=== PATIENT | male | born 1960 | race Caucasian/White ===

== ENCOUNTER 2024-06-23 00:04 | Inpatient (IN) | payer OTHER ==
[2024-06-23] MEDS: LIDOCAINE 1% INJ 10MG/ML (20 ML MDV) SQ ONE (00:02)
[2024-06-23] MEDS: VERAPAMIL SYRINGE (5 MG/10 ML) INTRACORON ONE (00:04)
--- NOTE | 2024-06-23 00:23 | ED ---
Chest Pain HPI - General Chief Complaint: Chest Pain Stated Complaint: Chest Pain Time Seen by Provider: 06/23/24 00:13 Source: patient Mode of arrival: ambulatory Limitations: no limitations - History of Present Illness Initial Comments: This patient is a 63-year-old man who presents to have evaluation for chest pain. The patient states that he had visited with his daughter this evening. She left around 9 PM and when he stood up he noticed the onset of pain in the left substernal area. The pain was heavy aching. He noticed that it was radiating to both of the shoulders. He took an aspirin at that time. The patient states that over the course of the intervening hours the pain worsened and he therefore comes here to have evaluation. He did take another aspirin. MD Complaint: chest pain Onset/Timin -: hour(s) Onset: during rest Pain Location: substernal Pain Radiation: RUE, LUE Severity: severe Quality: aching Consistency: constant Improves With: nothing Worsens With: nothing Anginal Symptoms: diaphoresis Treatments Prior to Arrival: aspirin - Related Data Home Medications Medication Instructions Recorded Confirmed Albuterol Sulfate [Albuterol 2 puff PO RT-Q6H PRN 06/23/24 06/23/24 Sulfate Hfa] Fluticasone Propion/Salmeterol 1 puff INHALATION RT-BID 06/23/24 06/23/24 [Advair 250-50 Diskus] Previous Rx's Medication Instructions Recorded Aspirin 81 mg PO DAILY #90 tab 06/25/24 Atorvastatin [Lipitor] 80 mg PO HS #90 tab 06/25/24 Clopidogrel [Plavix] 75 mg PO DAILY #90 tablet 06/25/24 Losartan [Cozaar] 25 mg PO DAILY #90 tab 06/25/24 Metoprolol Succinate (ER) [Toprol 12.5 mg PO DAILY #90 tab 06/25/24 XL] Allergies Allergy/AdvReac Type Severity Reaction Status Date / Time codeine AdvReac Nausea & Verified 06/23/24 09:20 Vomiting meperidine [From Demerol] AdvReac "heart Verified 06/23/24 09:20 stopped" Review of Systems ROS Statement: Those systems with pertinent positive or pertinent negative responses have been documented in the HPI. ROS Other: All systems not noted in ROS Statement are negative. Constitutional: Denies: fever, chills, weakness Respiratory: Denies: cough, dyspnea Cardiovascular: Reports: as per HPI, chest pain. Denies: palpitations, orthopnea, edema, syncope Gastrointestinal: Denies: abdominal pain, nausea, vomiting, diarrhea Genitourinary: Denies: dysuria, hematuria Musculoskeletal: Denies: back pain Skin: Denies: rash Neurological: Denies: headache, weakness, numbness EKG Findings - EKG Results: EKG: interpreted by ERMD, sinus rhythm (Rate 60 bpm), normal axis, normal QRS - UT, Pacemaker, Normal: Myocardial infarction: inferior UT (acute or recent) Past Medical History Past Medical History: COPD Additional Past Medical History / Comment(s): hernia History of Any Multi-Drug Resistant Organisms: None Reported Past Surgical History: No Surgical Hx Reported Past Psychological History: No Psychological Hx Reported Smoking Status: Former smoker Past Alcohol Use History: Occasional Past Drug Use History: None Reported General Exam Limitations: no limitations General appearance: alert, in no apparent distress Head exam: Present: atraumatic, normocephalic Eye exam: Present: normal appearance. Absent: scleral icterus, conjunctival injection ENT exam: Present: normal oropharynx Neck exam: Present: normal inspection, full ROM Respiratory exam: Present: normal lung sounds bilaterally. Absent: respiratory distress, wheezes, rales, rhonchi, stridor, accessory muscle use Cardiovascular Exam: Present: regular rate, normal rhythm, normal heart sounds. Absent: systolic murmur, diastolic murmur, rubs, gallop GI/Abdominal exam: Present: soft. Absent: distended, tenderness, guarding, rebound, rigid, mass, pulsatile mass Extremities exam: Present: normal inspection, normal capillary refill. Absent: pedal edema, calf tenderness Back exam: Present: normal inspection. Absent: CVA tenderness (R), CVA tenderness (L) Neurological exam: Present: alert Skin exam: Present: warm, dry, intact, normal color. Absent: rash Course Vital Signs 06/23/24 06/23/24 06/23/24 00:07 00:15 00:20 Temperature 97.7 F Pulse Rate 64 80 79 Pulse Rate [ 76 Right Radial] Respiratory 18 18 18 Rate Blood Pressure 180/95 176/106 181/113 O2 Sat by Pulse 98 99 99 Oximetry 06/23/24 06/23/24 06/23/24 00:25 00:30 00:40 Temperature Pulse Rate 77 74 75 Pulse Rate [ Right Radial] Respiratory 20 18 18 Rate Blood Pressure 144/130 182/171 149/97 O2 Sat by Pulse 98 98 95 Oximetry 06/23/24 00:45 Temperature Pulse Rate 68 Pulse Rate [ Right Radial] Respiratory 18 Rate Blood Pressure 136/81 O2 Sat by Pulse 95 Oximetry Chest Pain MDM - MDM The patient had chest x-ray that I interpreted as negative for acute infiltrate, pneumothorax, congestive heart failure The patient presents with symptoms that are concerning for STEMI. I did receive an EKG which is consistent with acute STEMI. I activated the code STEMI and discussed the case with Dr. Mock. Was pt. sent in by a medical professional or institution (, PA, SOLAR MAINTENANCE TECHNICIAN, urgent care, hospital, or fpc...) When possible be specific @ -[No] Did you speak to anyone other than the patient for history (EMS, parent, family, police, friend...)? What history was obtained from this source @ -[No] Did you review nursing and triage notes (agree or disagree)? Why? @ -[I reviewed and agree with nursing and triage notes] Were old charts reviewed (outside hosp., previous admission, EMS record, old EKG, old radiological studies, urgent care reports/EKG's, fpc records)? Report findings @ -[No old charts were reviewed] Differential Diagnosis (chest pain, altered mental status, abdominal pain women, abdominal pain men, vaginal bleeding, weakness, fever, dyspnea, syncope, headache, dizziness, GI bleed, back pain, seizure, CVA, palpatations, mental health, musculoskeletal)? @ -[Differential Chest Pain: Stable Angina, Unstable Angina, STEMI, NSTEMI Aortic Dissection, Pneumothorax, Musculoskeletal, Esophageal Spasm GERD, Cholecystitis, Pancreatitis, Zoster, this is not meant to be an all-inclusive list. EKG interpreted by me (3pts min.). @ -[I interpreted as above] X-rays interpreted by me (1pt min.). @ -[I interpreted as above CT interpreted by me (1pt min.). @ -[None done] U/S interpreted by me (1pt. min.). @ -[None done] What testing was considered but not performed or refused? (CT, X-rays, U/S, labs)? Why? @ -[None] What meds were considered but not given or refused? Why? @ -[None] Did you discuss the management of the patient with other professionals (professionals i.e. , PA, SOLAR MAINTENANCE TECHNICIAN, lab, RT, psych nurse, social studies teacher, real estate lawyer, teacher, digital marketing officer, case management specialist)? Give summary @ -[Case discussed with cardiology on-call and also with the admitting physician and treatment recommendations incorporated Was smoking cessation discussed for >3mins.? @ -[No] Was critical care preformed (if so, how long)? @ -[Yes, 35 minutes Were there social determinants of health that impacted care today? How? (Homeles sness, low income, unemployed, alcoholism, drug addiction, transportation, low edu. Level, literacy, decrease access to med. care, retirement, rehab)? @ -[No] Was there de-escalation of care discussed even if they declined (Discuss DNR or withdrawal of care, Hospice)? DNR status @ -[No] What co-morbidities impacted this encounter? (DM, HTN, Smoking, COPD, CAD, Cancer, CVA, ARF, Chemo, Hep., AIDS, mental health diagnosis, sleep apnea, morbid obesity)? @ -[Hypertension Was patient admitted / discharged? Hospital course, mention meds given and route, prescriptions, significant lab abnormalities, going to OR and other pertinent info. @ -[See course above, the patient had the Licensed Psychiatric Technician activated and sent to Licensed Psychiatric Technician as a STEMI Undiagnosed new problem with uncertain prognosis? @ -[No] Drug Therapy requiring intensive monitoring for toxicity (Heparin, Nitro, Insulin, Cardizem)? @ -[Heparin Were any procedures done? @ -[No] Diagnosis/symptom? @ -Acute STEMI Acute, or Chronic, or Acute on Chronic? @ -[Acute Uncomplicated (without systemic symptoms) or Complicated (systemic symptoms)? @ -[Uncomplicated Side effects of treatment? @ -[No] Exacerbation, Progression, or Severe Exacerbation? @ -[No] Poses a threat to life or bodily function? How? (Chest pain, [place], UT, pneumonia, PE, COPD, DKA, ARF, appy, cholecystitis, CVA, Diverticulitis, Homicidal, Suicidal, threat to staff... and all critical care pts) @ -[No] All treatments are based on ideal body weight as in ED triage Disposition Clinical Impression: STEMI (ST elevation myocardial infarction) Disposition: ADMITTED IP TO THIS HOSP Condition: Good Is patient prescribed a controlled substance at d/c from ED?: No
[2024-06-23] MEDS: MORPHINE SULFATE 4 MG/ML SYRINGE IV STA (00:24)
[2024-06-23] MEDS ORDERED: HEPARIN SODIUM 1,000 UN/ML (10ML VL) IV PRN (00:30)
[2024-06-23] MEDS: ONDANSETRON 4 MG/2 ML VIAL IVP STA (00:32)
[2024-06-23] MEDS: HEPARIN SODIUM 1,000 UN/ML (10ML VL) IV ONE ×2 (00:35→02:00)
[2024-06-23] MEDS: ATORVASTATIN 80 MG TAB PO STA (00:35)
[2024-06-23] MEDS: NITROGLYCERIN SL TABS 0.4 MG TAB SUBLINGUAL PRN (00:35)
[2024-06-23 00:38] LABS: Basophils # (A) 0.04 10*3/uL (0.00-0.10); Basophils % (A) 0.4 %; Eosinophils # (A) 0.03 10*3/uL (0.04-0.35); Eosinophils % (A) 0.3 %; HCT 43.1 % (39.6-50.0); HGB 15.6 g/dL (13.0-17.0); Lymphocytes # (A) 0.98 10*3/uL (0.90-5.00); Lymphocytes % (A) 9.1 %; MCH 32.2 pg (27.0-32.0); MCHC 36.2 g/dL (32.0-37.0); MCV 88.9 fL (80.0-97.0); Mean Platelet Volume 9.9 fL (9.5-12.2); Monocytes # (A) 0.41 10*3/uL (0.20-1.00); Monocytes % (A) 3.8 %; Neutrophils # (A) 9.25 10*3/uL (1.80-7.70); Platelet Count 182 10*3/uL (140-440); RBC 4.85 10*6/uL (4.40-5.60); RDW 11.9 % (11.5-14.5); WBC 10.75 10*3/uL (4.50-10.00)
[2024-06-23 00:43] LABS: Partial Thromboplastin Time 22.9 sec (22.0-30.0); Prothrombin Time 10.9 sec (10.0-12.5)
[2024-06-23 00:44] LABS: ALT 26 U/L (4-49); AST 23 U/L (17-59); African American GFR (CKD) >90 (>60 ml/min/1.73 sqM); Albumin 4.7 g/dL (3.5-5.0); Alkaline Phosphatase 86 U/L (38-126); Anion Gap 13 mmol/L; Blood Urea Nitrogen 17 mg/dL (9-20); Calcium 9.5 mg/dL (8.4-10.2); Carbon Dioxide 23 mmol/L (22-30); Chloride 102 mmol/L (98-107); Glucose 177 mg/dL (74-99); Non-African American GFR(CKD) 83 (>60 ml/min/1.73 sqM); Potassium 4.2 mmol/L (3.5-5.1); Sodium 138 mmol/L (137-145); Total Bilirubin 0.8 mg/dL (0.2-1.3); Total Protein 7.6 g/dL (6.3-8.2)
--- NOTE | 2024-06-23 00:59 | P.CRDCN ---
History of Present Illness Consult date: 06/23/24 History of present illness: HISTORY OF PRESENTING ILLNESS: Patient is a 63-year-old male with prior cardiovascular history History history of COPD and smoking Denies any history of stroke diabetes or any malignancies or any bleeding complications Presents to the [facility] [place] because of substernal chest pressure that started around 9 PM this evening. He describes this pain as substernal pressure-like sensation associated with diaphoresis and impending doom. Does report associated Demorem bleeding. Admission EKG showed sinus rhythm with ST elevations in inferior leads with reciprocal ST changes in 1 and aVF REVIEW OF SYSTEMS: 14 point review of system is negative except what is mentioned above in HPI. PHYSICAL EXAMINATION: Neck: Brisk carotid upstroke, no jugular venous distention. Lungs: Clear to auscultation. Heart: Regular rate and rhythm, S1-S2, , no murmur or rub. Abdomen: Soft nontender, positive bowel sounds. Extremities: No edema, intact distal pulses. Neuro: Alert, oritented, no focal deficits. Detailed neuro exam was not performed. ASSESSMENT: # Acute inferior STEMI # COPD # Prior tobacco smoker # Obesity PLAN: Plan for cardiac catheterization emergently Further recommendations to follow Mason Mock MD, FACC, RPVI Thank you for allowing [facility] to participate in this patient's care. Feel free to reach out in case of any followup questions. Past Medical History Past Medical History: COPD Additional Past Medical History / Comment(s): hernia History of Any Multi-Drug Resistant Organisms: None Reported Past Surgical History: No Surgical Hx Reported Past Psychological History: No Psychological Hx Reported Smoking Status: Former smoker Past Alcohol Use History: Occasional Past Drug Use History: None Reported Medications and Allergies Allergies Allergy/AdvReac Type Severity Reaction Status Date / Time codeine Allergy Nausea & Verified 06/23/24 00:09 Vomiting Physical Exam Vitals: Vital Signs Temp Pulse Resp BP Pulse Ox 06/23/24 00:45 68 18 136/81 95 06/23/24 00:40 75 18 149/97 95 06/23/24 00:30 74 18 182/171 98 06/23/24 00:25 77 20 144/130 98 06/23/24 00:20 79 18 181/113 99 06/23/24 00:15 80 18 176/106 99 06/23/24 00:07 97.7 F 64 18 180/95 98 Intake and Output 06/22/24 06/22/24 06/23/24 14:59 22:59 06:59 Other: Weight 113.398 kg Results 06/23/24 00:22 06/23/24 00:22 Cardiac Enzymes 06/23/24 Range/Units 00:22 AST 23 (17-59) U/L Coagulation 06/23/24 Range/Units 00:22 PT 10.9 (10.0-12.5) sec APTT 22.9 (22.0-30.0) sec CBC 06/23/24 Range/Units 00:22 WBC 10.75 H (4.50-10.00) 10*3/uL RBC 4.85 (4.40-5.60) 10*6/uL Hgb 15.6 (13.0-17.0) g/dL Hct 43.1 (39.6-50.0) % Plt Count 182 (140-440) 10*3/uL Comprehensive Metabolic Panel 06/23/24 Range/Units 00:22 Sodium 138 (137-145) mmol/L Potassium 4.2 (3.5-5.1) mmol/L Chloride 102 (98-107) mmol/L Carbon Dioxide 23 (22-30) mmol/L BUN 17 (9-20) mg/dL Creatinine 0.97 (0.66-1.25) mg/dL Glucose 177 H (74-99) mg/dL Calcium 9.5 (8.4-10.2) mg/dL AST 23 (17-59) U/L ALT 26 (4-49) U/L Alkaline Phosphatase 86 (38-126) U/L Total Protein 7.6 (6.3-8.2) g/dL Albumin 4.7 (3.5-5.0) g/dL Current Medications Generic Name Dose Route Start Last Admin Trade Name Freq PRN Reason Stop Dose Admin Heparin Sodium (Porcine) 0 unit 06/23/24 00:30 Heparin Sodium 1,000 Un/Ml (10ml Vl) IV PER PROTOCOL PRN Low PTT Protocol Heparin Sodium/Sodium Chloride 250 mls @ 9.99 mls/hr 06/23/24 00:30 25,000 unit/ Sodium Chloride IV .Q24H [facility] Protocol 8.81 UNITS/KG/HR Nitroglycerin 0.4 mg 06/23/24 00:31 06/23/24 00:43 Nitroglycerin Sl Tabs 0.4 Mg Tab SUBLINGUAL 0.4 mg Q5M PRN Administration Chest Pain Intake and Output 06/22/24 06/22/24 06/23/24 14:59 22:59 06:59 Other: Weight 113.398 kg Patient Weight 06/23/24 06:59 Weight 113.398 kg 06/23/24 00:22 06/23/24 00:22
[2024-06-23] MEDS: fentaNYL (PF) 50 MCG/ML 2 ML AMP IVP ONE (01:08)
[2024-06-23] MEDS: MIDAZOLAM 2 MG/2 ML VIAL IVP ONE (01:08)
[2024-06-23] MEDS: PRASUGREL 10 MG TAB PO ONE (01:20)
[2024-06-23] MEDS: HEPARIN SODIUM 1,000 UN/ML (10ML VL) IVP ONE (01:20)
[2024-06-23] MEDS: IOPAMIDOL-370 100ML BTL IVP ONE (01:25)
--- NOTE | 2024-06-23 01:27 | P.CRDCN ---
History of Present Illness Consult date: 06/23/24 History of present illness: DIAGNOSTIC CORONARY ANGIOGRAPHY and LEFT HEART CATH REPORT PROCEDURES PERFORMED: Left heart catheterization Selective coronary angiography Moderate conscious sedation 13 mins Right radial access INDICATION: Inferior STEMI BRIEF HPI: 63-year-old past medical history of smoking COPD no prior cardiovascular history presented to the hospital because of acute substernal chest pressure with diaphoresis and shortness of breath. Admission EKG showed inferior ST elevations with reciprocal changes in anterolateral leads. For this he was taken to the cardiac Pediatric Anesthesiologist emergently. CONSENT: I have explained the procedural steps of above-mentioned procedures in layman's terms to the patient. I discussed the risks (including but not limited to stroke, emergent vascular or cardiac surgery or ), benefits and alternative therapies for the above-mentioned procedure. I discussed the risks of sedation/analgesia and blood product administration (if indicated). The patient has indicated understanding and acceptance of these risks. Conscious Sedation: Patient's ECG, heart rate, blood pressure, pulse oximetry were monitored throughout the duration of procedure under my direct supervision. 1 mg Versed and 50 mcg Fentanyl were used for induction of moderate conscious sedation. Total duration of moderate concious sedation 13 minutes. PROCEDURAL DETAILS: Patient was prepped and draped in sterile fashion. 1% lidocaine was infiltrated over the right radial artery. Right radial access was obtained via modified seldinger technique. . Medications: 5mg of verapamil was administed in the radial sheet. 4000 Units of Heparin was administed in the ER Wires and Catheter used: J wire was advanced under fluroscopy to get to aortic root. 5 slovak JR 4 diagnostic catheter was utilized obtain left ventricular pressure and pressure gradint across aortic valve. 5 slovak JR 4 diagnostic catheter was used to selectively engage the right coronary ostium. 5 slovak JL 3.5 diagnostic catheter was utilized to selectively engage the left coronary ostium. Angiographic images were reviewed in detail. Catheter and wire were removed. Radial sheet was flushed. The right radial sheath was removed and a TR band was placed. Patent hemostasis was achieved. The patient tolerated the procedure well. Patient was transported back to the post catheterization holding area in stable condition. TECHNICAL DETAILS Total contrast used: Isovue [60 ml] Complications: [none] Estimated Blood loss: less than 15 ml HEMODYNAMICS: Aortic Pressure: 126/80 mmHg. LV pressure: 128/5 mmHg. LVEDP 20 mmHg. There was no significant gradient across the aortic valve. SELECTIVE CORONARY ARTERIOGRAPHY: LEFT MAIN: The left main is short and large caliber vessel. It bifurcates into the LAD and circumflex. Left main appears angiographically normal. LEFT ANTERIOR DESCENDING CORONARY ARTERY: LAD is large caliber and wraps around the apex. Distal portion of proximal LAD has 50% disease. Mid LAD has 60 to 70% narrowing. Mid LAD gives rise to a small diagonal 1 branch and a large caliber diagonal 2 branch. Diagonal 1 branch has 50 to 60% disease in mid segment. Small caliber not even before intervention. Diagonal 2 branch has 100% thrombotic occlusion TAMMY 0 flow. It is a culprit vessel. Distal LAD has mild luminal irregularities. LEFT CIRCUMFLEX CORONARY ARTERY: LCx is nondominant. Moderate caliber vessel. Proximal and mid LCx angiographically patent. Proximal and mid LCx gives rise to multiple small OM branches appear angiographically patent. Distal LCx has 50% disease. RIGHT CORONARY ARTERY: Dominant vessel moderate caliber. Proximal RCA appears angiographically patent with mild to moderate irregularities. Mid RCA has 30% irregular plaque. Distal RCA progressed into PDA and PL branch. PDA is medium caliber and long vessel. It has 20 to 30% luminal irregularities. IMPRESSION: 100% thrombotic occlusion of diagonal 2, TAMMY 0 flow 60 to 70% mid LAD disease 50% diagonal 1 disease, small caliber vessel 50% distal LCx disease 30% mid RCA disease Mild diffuse disease in PDA Mildly elevated LVEDP PLAN: PCI of diagonal 2 with IFR guided intervention of mid LAD Further recommendations to follow Performing Physician Mason Mock MD, FACC, RPVI Thank you for allowing [facility] to participate in this patient's care. Feel free to reach out in case of any followup questions. Past Medical History Past Medical History: COPD Additional Past Medical History / Comment(s): hernia History of Any Multi-Drug Resistant Organisms: None Reported Past Surgical History: No Surgical Hx Reported Past Psychological History: No Psychological Hx Reported Smoking Status: Former smoker Past Alcohol Use History: Occasional Past Drug Use History: None Reported Medications and Allergies Allergies Allergy/AdvReac Type Severity Reaction Status Date / Time codeine Allergy Nausea & Verified 06/23/24 00:09 Vomiting Physical Exam Vitals: Vital Signs Temp Pulse Resp BP Pulse Ox 06/23/24 00:45 68 18 136/81 95 06/23/24 00:40 75 18 149/97 95 06/23/24 00:30 74 18 182/171 98 06/23/24 00:25 77 20 144/130 98 06/23/24 00:20 79 18 181/113 99 06/23/24 00:15 80 18 176/106 99 06/23/24 00:07 97.7 F 64 18 180/95 98 Intake and Output 06/22/24 06/22/24 06/23/24 14:59 22:59 06:59 Other: Weight 113.398 kg Results 06/23/24 00:22 06/23/24 00:22 Cardiac Enzymes 06/23/24 06/23/24 Range/Units 00:22 00:22 AST 23 (17-59) U/L Troponin I 0.062 H* (0.000-0.034) ng/mL Coagulation 06/23/24 Range/Units 00:22 PT 10.9 (10.0-12.5) sec APTT 22.9 (22.0-30.0) sec CBC 06/23/24 Range/Units 00:22 WBC 10.75 H (4.50-10.00) 10*3/uL RBC 4.85 (4.40-5.60) 10*6/uL Hgb 15.6 (13.0-17.0) g/dL Hct 43.1 (39.6-50.0) % Plt Count 182 (140-440) 10*3/uL Comprehensive Metabolic Panel 06/23/24 Range/Units 00:22 Sodium 138 (137-145) mmol/L Potassium 4.2 (3.5-5.1) mmol/L Chloride 102 (98-107) mmol/L Carbon Dioxide 23 (22-30) mmol/L BUN 17 (9-20) mg/dL Creatinine 0.97 (0.66-1.25) mg/dL Glucose 177 H (74-99) mg/dL Calcium 9.5 (8.4-10.2) mg/dL AST 23 (17-59) U/L ALT 26 (4-49) U/L Alkaline Phosphatase 86 (38-126) U/L Total Protein 7.6 (6.3-8.2) g/dL Albumin 4.7 (3.5-5.0) g/dL Current Medications Generic Name Dose Route Start Last Admin Trade Name Freq PRN Reason Stop Dose Admin Heparin Sodium (Porcine) 0 unit 06/23/24 00:30 Heparin Sodium 1,000 Un/Ml (10ml Vl) IV PER PROTOCOL PRN Low PTT Protocol Heparin Sodium/Sodium Chloride 250 mls @ 9.99 mls/hr 06/23/24 00:30 25,000 unit/ Sodium Chloride IV .Q24H [facility] Protocol 8.81 UNITS/KG/HR Nitroglycerin 0.4 mg 06/23/24 00:31 06/23/24 00:43 Nitroglycerin Sl Tabs 0.4 Mg Tab SUBLINGUAL 0.4 mg Q5M PRN Administration Chest Pain Intake and Output 06/22/24 06/22/24 06/23/24 14:59 22:59 06:59 Other: Weight 113.398 kg Patient Weight 06/23/24 06:59 Weight 113.398 kg 06/23/24 00:22 06/23/24 00:22
[2024-06-23] MEDS: HYDROmorphone 0.5 MG/0.5 ML SYRINGE IVP ONE (01:37)
[2024-06-23] MEDS: NITROGLYCERIN 1000MCG/10ML SYRINGE INTRACORON ONE (01:38)
[2024-06-23] MEDS: SODIUM CHLORIDE 0.9% 1,000 ML IV ONE (01:38)
[2024-06-23] MEDS: IOPAMIDOL-370 100ML BTL INJ ONE (01:39)
--- NOTE | 2024-06-23 01:39 | XR ---
EXAM: XR Chest, 1 View CLINICAL HISTORY: XR Reason: Chest Pain TECHNIQUE: Frontal view of the chest. COMPARISON: No relevant prior studies available. FINDINGS: Lungs: Slightly prominent vascular and interstitial markings throughout the lungs without overt edema or acute focal infiltrate. Pleural space: Unremarkable. No pneumothorax. Heart: The cardiac silhouette is upper normal in size. Mediastinum: Unremarkable. Normal mediastinal contour. Bones/joints: Unremarkable. No acute fracture. Upper abdomen: Unremarkable as visualized. No pneumoperitoneum under the diaphragm. IMPRESSION: Slightly prominent vascular and interstitial markings throughout the lungs without overt edema or acute focal infiltrate.
[2024-06-23] MEDS: niCARdipine Syringe (1,000 mcg/10 mL) INTRACORON ONE (01:44)
[2024-06-23] MEDS: TIROFIBAN 12.5MG-250ML NS 250 ML IV ONE (01:50)
[2024-06-23] MEDS ORDERED: ATROPINE SULFATE 0.1 MG/ML 10ML SYRINGE IV PRN (01:56)
[2024-06-23] MEDS ORDERED: NITROGLYCERIN SL TABS 0.4 MG TAB SUBLINGUAL PRN (01:56)
[2024-06-23] MEDS ORDERED: RX INFO: IV CONTRAST WAS GIVEN 1 EACH MISC MISCELLANE PRN (01:56)
[2024-06-23] MEDS ORDERED: MAG HYDROX/AL HYDROX/SIMETH 30 ML CUP PO PRN (01:56)
--- NOTE | 2024-06-23 02:01 | P.PCN ---
Date of Procedure: 06/23/24 Operative Findings: PERCUTANEOUS CORONARY INTERVENTION Performing physician Eleno Gann M.D. Procedure Performed: 1. Successful stenting of the second diagonal branch of the using 4.0 x 15 mm Xience drug-eluting stent with an excellent angiographic results. 2. Adjunctive use of IVUS Indication: Acute coronary send Approach: Right radial art Complications: None Level of Sedation: Moderate with a sedation length of 33 minutes Procedure Discussion: Please refer to heart catheterization was performed by Dr. Mock earlier today with anticoagulation was initiated using heparin with continuous ACT monitoring. Subsequently I did engage the left main coronary artery using JL 3.5 guiding catheter. I did load the patient with Effient immediately from the beginning of the procedure before we engaged with the guide. I did wire the LAD using a run- through wire and wired the diagonal branch using another run-through wire as well. Subsequently I did balloon angioplasty of the diagonal branch using 2.5 mm balloon before I did IVUS which showed a diameter between 3.5 to 4 mm. 4.0 x 15 mm stent was deployed under fluoroscopy guidance and IVUS was performed and the stent was postdilated using 4.5 mm NC balloon. There was distal clot involving the distal diagonal branch which I gave the patient some Aggrastat to be initiated for the large thrombus burden identified. The procedure was completed with no complication Postprocedure Management: 1. Dual antiplatelet therapy using aspirin and Effient 2. Cholesterol count 3. Risk factors modification
[2024-06-23 02:09] LABS: Glucose,Whole Blood 149 mg/dL (70-110)
[2024-06-23 02:10] LABS: NT-Pro-B-Type Natriuretic Pept 58 pg/mL
[2024-06-23] MEDS: SODIUM CHLORIDE 0.9% 1,000 ML in EMPTY BAG 1 BAG IV SCH (02:18)
[2024-06-23] MEDS: HEPARIN SOD,PORK IN 0.45% NACL 25,000 UNIT in 0.45% NACL 1 250ML.BAG IV SCH (03:43)
[2024-06-23] MEDS ORDERED: IPRATROPIUM-ALBUTEROL 3 ML NEB INHALATION PRN (04:52)
--- NOTE | 2024-06-23 04:52 | P.HPIM ---
History of Present Illness H&P Date: 06/23/24 63-year-old male with COPD and smoking, history of DM and hyperlipidemia corrected with diet and weight loss years ago Patient coming in for evaluation of chest pain that started suddenly last night when he started feeling pain substernal and left side of his chest felt like heavy achy pain which was radiating to both shoulders and was getting worse despite taking aspirin, pain was associated with profuse sweating and dyspnea. Denies any cardiac history in the past, however he did have an episode of chest pain and syncope 2 weeks ago , but felt fine after he woke up and did not think much about it. he has been going through a divorce for the past 2 years, and was very stressful, stopped exercising and gained all the weight back. EKG in the ED showed ST segment elevation in the inferior leads Fringing Machine Operator was activated for STEMI, patient was taken emergently to the Fringing Machine Operator with the following findings 100% thrombotic occlusion of diagonal 2, TAMMY 0 flow 60 to 70% mid LAD disease 50% diagonal 1 disease, small caliber vessel 50% distal LCx disease 30% mid RCA disease Mild diffuse disease in PDA Mildly elevated LVEDP Successful stenting of the second diagonal branch of the using 4.0 x 15 mm Xience drug-eluting stent with an excellent angiographic results. review of systems Pertinent positives as noted in HPI. All other systems were reviewed and are negative on exam Constitutional: No acute distress, conversant, pleasant Eyes: Anicteric sclerae, moist conjunctiva, Pupils equal round reactive to light ENMT: NC/AT Oropharynx clear, no erythema, or exudates Neck: Supple, no masses, or JVD No carotid bruits No thyromegaly Lungs: Clear to auscultation Clear to percussion Normal respiratory effort, no accessory muscle use Cardiovascular: Heart regular in rate and rhythm, No murmurs, gallops, or rubs No peripheral edema Abdominal: Soft Nontender, no guarding, rebound or rigidity Abdomen moving with respiration Normoactive bowel sounds Extremities: No digital cyanosis No clubbing Pedal pulses intact and symmetrical Radial pulses intact and symmetrical No calf tenderness Psychiatric: Alert and oriented to person, place and time Appropriate affect fair judgement Neuro Muscles Strength 5/5 in all 4 extremities Sensation to light touch grossly present throughout Cranial nerves II-XII grossly intact Past Medical History Past Medical History: COPD Additional Past Medical History / Comment(s): hernia History of Any Multi-Drug Resistant Organisms: None Reported Past Surgical History: No Surgical Hx Reported Past Anesthesia/Blood Transfusion Reactions: No Reported Reaction Past Psychological History: No Psychological Hx Reported Smoking Status: Former smoker Past Alcohol Use History: Occasional Past Drug Use History: None Reported Medications and Allergies Allergies Allergy/AdvReac Type Severity Reaction Status Date / Time codeine Allergy Nausea & Verified 06/23/24 00:09 Vomiting Physical Exam Vitals: Vital Signs Temp Pulse Pulse Resp BP BP Pulse Ox 06/23/24 03:30 86 9 L 147/87 94 L 06/23/24 03:00 76 14 142/91 97 06/23/24 02:52 98.3 F 76 6 L 142/91 96 06/23/24 02:30 76 18 139/80 99 06/23/24 02:15 79 11 L 139/80 94 L 06/23/24 00:45 68 18 136/81 95 06/23/24 00:40 75 18 149/97 95 06/23/24 00:30 74 18 182/171 98 06/23/24 00:25 77 20 144/130 98 06/23/24 00:20 79 18 181/113 99 06/23/24 00:15 80 76 18 176/106 99 06/23/24 00:07 97.7 F 64 18 180/95 98 Intake and Output 06/22/24 06/22/24 06/23/24 14:59 22:59 06:59 Intake Total 394 Balance 394 Intake: IV 394 Sodium Chloride 0.9% 1, 150 000 ml In Empty Bag 1 bag @ 75 mls/hr IV .[id number] [facility] Rx#:[id number] Other: Weight 113.398 kg Results CBC & Chem 7: 06/23/24 00:22 06/23/24 00:22 Labs: Abnormal Lab Results - Last 24 Hours (Table) 06/23/24 06/23/24 06/23/24 Range/Units 00:22 00:22 00:22 WBC 10.75 H (4.50-10.00) 10*3/uL MCH 32.2 H (27.0-32.0) pg Neutrophils # 9.25 H (1.80-7.70) 10*3/uL Eosinophils # 0.03 L (0.04-0.35) 10*3/uL Glucose 177 H (74-99) mg/dL POC Glucose (mg/dL) (70-110) mg/dL Troponin I 0.062 H* (0.000-0.034) ng/mL 06/23/24 Range/Units 02:08 WBC (4.50-10.00) 10*3/uL MCH (27.0-32.0) pg Neutrophils # (1.80-7.70) 10*3/uL Eosinophils # (0.04-0.35) 10*3/uL Glucose (74-99) mg/dL POC Glucose (mg/dL) 149 H (70-110) mg/dL Troponin I (0.000-0.034) ng/mL Thrombosis Risk Factor Assmnt - Choose All That Apply Each Factor Represents 1 point: Obesity (BMI >25) Each Risk Factor Represents 2 Points: Age 61-74 years Thrombosis Risk Factor Assessment Total Risk Factor Score: 3 Thrombosis Risk Factor Assessment Level: Moderate Risk Assessment and Plan Assessment: 63-year-old male with COPD, smoking coming in for chest pain found to have STEMI I discussed the case with ED doctor and accepted the admission for STEMI with anticipated length of stay more than 2 midnights STEMI Patient was emergently taken to the Fringing Machine Operator Troponin elevated 0.062 Successful stenting of the second diagonal branch of the using 4.0 x 15 mm Xience drug-eluting stent with an excellent angiographic results. Continue with aspirin Continue with Brilinta Atorvastatin 80 mg nightly Cardiology following ICU care Check lipid profile, A1c TSH unremarkable 2.56 COPD compensated Supplemental oxygen as needed DuoNebs as needed Full code DVT prophylaxis heparin SQ 3 times daily 5000 units Blood work showing white count 10.75 most likely reactive to above Hemoglobin unremarkable 15.6 Renal function unremarkable sodium 138 potassium 4.2 BUN 17 creatinine 0.97 Chest x-ray showing some slight prominent vascular interstitial markings throughout the lungs
[2024-06-23] MEDS: HYDROmorphone 1 MG/ML 1 ML SYRINGE IVP STA (06:27)
--- NOTE | 2024-06-23 08:06 | P.PN ---
Subjective Progress Note Date: 06/23/24 The patient is a 63-year-old gentleman with a past medical history significant for hypertension and dyslipidemia and overweight who was admitted to the hospital yesterday with a chest discomfort and was a diagnosed with ST elevation myocardial infarction. He underwent a heart catheterization was found to have intermediate disease involving the RCA and mid LAD by the bifurcation of a large diagonal branch which was occluded with a large thrombus burden. He underwent PCI of the diagonal branch. June 23, 2024 The patient was seen and evaluated this morning. He is asymptomatic and he is hemodynamically stable. The echo still pending. He is on dual antiplatelet therapy along with high intensity statin. The physical examination is remarkable for regular rhythm with a soft systolic murmur and clear breathing sounds bilaterally and no edema was noted in the lower extremities Assessment ST elevation myocardial infarction Severe CAD as described above Multiple comorbid conditions Plan Continue the current medical regimen Add small dose of beta-oziel Follow-up on the echocardiogram Further recommendation to follow the echocardiogram The patient can be transferred out of the ICU Objective - Vital Signs Vital signs: Vital Signs Temp 98.3 F 06/23/24 02:52 Pulse 89 06/23/24 07:00 Resp 12 06/23/24 07:00 BP 122/67 06/23/24 07:00 Pulse Ox 94 L 06/23/24 07:00 FiO2 Intake & Output 06/22/24 06/23/24 06/23/24 18:59 06:59 18:59 Intake Total 619 75 Output Total 200 Balance 419 75 Weight 113.398 kg Intake: IV 619 75 Sodium Chloride 0.9% 1, 375 75 000 ml In Empty Bag 1 bag @ 75 mls/hr IV .[id number] [facility] Rx#:[id number] Output: Urine 200 Other: Voiding Method Urinal - Labs CBC & Chem 7: 06/23/24 00:22 06/23/24 00:22 Labs: Abnormal Lab Results - Last 24 Hours (Table) 06/23/24 06/23/24 06/23/24 Range/Units 00:22 00:22 00:22 WBC 10.75 H (4.50-10.00) 10*3/uL MCH 32.2 H (27.0-32.0) pg Neutrophils # 9.25 H (1.80-7.70) 10*3/uL Eosinophils # 0.03 L (0.04-0.35) 10*3/uL Glucose 177 H (74-99) mg/dL POC Glucose (mg/dL) (70-110) mg/dL Troponin I 0.062 H* (0.000-0.034) ng/mL 06/23/24 Range/Units 02:08 WBC (4.50-10.00) 10*3/uL MCH (27.0-32.0) pg Neutrophils # (1.80-7.70) 10*3/uL Eosinophils # (0.04-0.35) 10*3/uL Glucose (74-99) mg/dL POC Glucose (mg/dL) 149 H (70-110) mg/dL Troponin I (0.000-0.034) ng/mL
[2024-06-23 08:15] LABS: Chol/HDL Ratio 8.88 Ratio
[2024-06-23] MEDS: HEPARIN SODIUM,PORCINE 5,000 UNIT/ML 1 ML VIAL SQ SCH (08:52)
[2024-06-23] MEDS: TICAGRELOR 90 MG TAB PO SCH (08:53)
[2024-06-23] MEDS: ASPIRIN 81 MG PO SCH (08:53)
[2024-06-23] MEDS: METOPROLOL SUCCINATE (ER) 25 MG TAB.ER.24H PO SCH (08:53)
--- NOTE | 2024-06-23 10:19 | CA ---
Transthoracic Echo Report Name: Chicho Anguiano Age: 63 Gender: M : 1960 Exam Date: 06/23/2024 07:47 Exam Location: [facility] Ht (in): 68 Wt (lb): 250 Ordering Physician: Eleno Gann MD ([id number]) Attending/Referring Phys: Automotive Specialty Technician Jennifer Yuan RDCS Procedure CPT: Indications: Post ASD/PFO Insertion Cardiac Hx: no pfo closure--pt had PCI Technical Quality: Technically difficult study Contrast 1: Definity Total Dose (mL): 2 Contrast 2: Total Dose (mL): MEASUREMENTS (Male / Female) Normal Values 2D ECHO LV Diastolic Diameter PLAX 4.0 cm 4.2 - 5.9 / 3.9 - 5.3 cm LV Systolic Diameter PLAX 2.9 cm IVS Diastolic Thickness 1.1 cm 0.6 - 1.0 / 0.6 - 0.9 cm LVPW Diastolic Thickness 1.1 cm 0.6 - 1.0 / 0.6 - 0.9 cm LV Relative Wall Thickness 0.6 RV Internal Dim ED PLAX 4.0 cm LA Systolic Diameter LX 4.0 cm 3.0 - 4.0 / 2.7 - 3.8 cm LV Diastolic Volume MOD BP 59.6 cm??? 67 - 155 / 56 - 104 cm??? LV Systolic Volume MOD BP 25.7 cm??? 22 - 58 / 19 - 49 cm??? LV Ejection Fraction MOD BP 56.9 % >= 55 % LV Cardiac Index MOD BP 1096.6 cm???/min???m??? LV Diastolic Volume MOD 4C 61.6 cm??? LV Systolic Volume MOD 4C 25.0 cm??? LV Ejection Fraction MOD 4C 59.4 % LV Cardiac Index MOD 4C 1183.2 cm???/min???m??? LV Diastolic Length 4C 6.9 cm LV Systolic Length 4C 6.3 cm LV Diastolic Volume MOD 2C 57.8 cm??? LV Systolic Volume MOD 2C 27.3 cm??? LV Ejection Fraction MOD 2C 52.8 % LV Cardiac Index MOD 2C 985.6 cm???/min???m??? LV Diastolic Length 2C 6.8 cm LV Systolic Length 2C 6.5 cm LA Volume 43.6 cm??? 18 - 58 / 22 - 52 cm??? LA Volume Index 18.3 cm???/m??? 16 - 28 cm???/m??? M-MODE Aortic Root Diameter MM 3.3 cm AV Cusp Separation MM 2.2 cm DOPPLER AV Peak Velocity 137.9 cm/s AV Peak Gradient 7.6 mmHg MV Area PHT 5.1 cm??? Mitral E Point Velocity 75.1 cm/s Mitral A Point Velocity 79.7 cm/s Mitral E to A Ratio 0.9 MV Deceleration Time 147.8 ms TR Peak Velocity 239.7 cm/s TR Peak Gradient 23.0 mmHg Right Ventricular Systolic Press 28.0 mmHg FINDINGS Left Ventricle Left ventricular ejection fraction is estimated at 45-50%. Left ventricular cavity size normal. Mildly increased septal wall thickness. Apical lateral hypokinesis, Apical anterior hypokinesis. Right Ventricle Moderate right ventricular dilatation. Right ventricular systolic pressure within normal limits. Right Atrium Right atrium not well visualized. Left Atrium Normal left atrial size. No left atrial thrombus or mass present. Mitral Valve Structurally normal mitral valve. No mitral stenosis, regurgitation or prolapse. Aortic Valve Trileaflet aortic valve. Thickened aortic valve without stenosis. No aortic valve stenosis or regurgitation. Tricuspid Valve Structurally normal tricuspid valve. Mild tricuspid regurgitation. Pulmonic Valve Pulmonic valve not well visualized. No pulmonic regurgitation. Pericardium No pericardial effusion. Aorta Normal size aortic root and proximal ascending aorta. CONCLUSIONS Normal left ventricle size with hypokinesia involving the apical lateral and distal anteroapical wall with ejection fraction in the 45 to 50% range. Aortic valve sclerosis. Mild mitral and tricuspid regurgitation. Technically difficult study with no clear-cut pericardial effusion and no pulmonary hypertension. Right ventricle is enlarged. Previewed by: Dr. Nazario Snow MD (Electronically Signed) Final Date: 23 Jun 2024 10:18
[2024-06-23 13:15] VITALS: BMI 38.0
[2024-06-23] MEDS: ATORVASTATIN 80 MG TAB PO SCH (19:57)
[2024-06-23] MEDS: SYMBICORT 80-4.5 MCG INHALER INHALATION SCH (20:23)
[2024-06-24 04:46] LABS: Basophils # (A) 0.06 10*3/uL (0.00-0.10); Basophils % (A) 0.8 %; Eosinophils # (A) 0.14 10*3/uL (0.04-0.35); HCT 42.6 % (39.6-50.0); HGB 15.2 g/dL (13.0-17.0); Lymphocytes # (A) 1.62 10*3/uL (0.90-5.00); Lymphocytes % (A) 22.8 %; MCHC 35.7 g/dL (32.0-37.0); MCV 89.7 fL (80.0-97.0); Mean Platelet Volume 9.9 fL (9.5-12.2); Monocytes % (A) 8.4 %; Neutrophils # (A) 4.68 10*3/uL (1.80-7.70); Neutrophils % (A) 65.9 %; Platelet Count 179 10*3/uL (140-440); RBC 4.75 10*6/uL (4.40-5.60); RDW 11.9 % (11.5-14.5); WBC 7.11 10*3/uL (4.50-10.00)
[2024-06-24 05:01] LABS: INR 1.1 (<1.2); Prothrombin Time 11.9 sec (10.0-12.5)
--- NOTE | 2024-06-24 07:30 | P.PN ---
Subjective Progress Note Date: 06/24/24 The patient is a 63-year-old gentleman with a past medical history significant for hypertension and dyslipidemia and overweight who was admitted to the hospital yesterday with a chest discomfort and was a diagnosed with ST elevation myocardial infarction. He underwent a heart catheterization was found to have intermediate disease involving the RCA and mid LAD by the bifurcation of a large diagonal branch which was occluded with a large thrombus burden. He underwent PCI of the diagonal branch. June 23, 2024 The patient was seen and evaluated this morning. He is asymptomatic and he is hemodynamically stable. The echo still pending. He is on dual antiplatelet therapy along with high intensity statin. The physical examination is remarkable for regular rhythm with a soft systolic murmur and clear breathing sounds bilaterally and no edema was noted in the lower extremities June 24, 2024 The patient was seen and evaluated this morning. He continues to have mild chest discomfort but no shortness of breath or any other cardiovascular symptoms. The echo showed cardiomyopathy with EF between 45 to 50% with wall motion abnormalities in the LAD/diagonal distribution. The plan is to pursue an FFR of the RCA and LAD later on today. Otherwise he is on dual antiplatelet therapy along with high intensity statin and beta-oziel. I am going to add losartan to the current medical regimen. The physical examination is remarkable for regular rhythm with a soft systolic murmur and clear breathing sounds bilaterally and no edema was noted in the lower extremities Assessment ST elevation myocardial infarction Severe CAD as described above Multiple comorbid conditions Plan Continue the current medical regimen Add losartan to the current medical regimen Proceed with FFR Objective - Vital Signs Vital signs: Vital Signs Temp 98.4 F 06/24/24 04:00 Pulse 65 06/24/24 05:00 Resp 8 L 06/24/24 05:00 BP 139/91 06/24/24 05:00 Pulse Ox 98 06/24/24 04:00 FiO2 Intake & Output 06/23/24 06/24/24 06/24/24 18:59 06:59 18:59 Intake Total 315 Output Total 380 500 Balance -65 -500 Weight 113.398 kg 104 kg Intake: IV 75 Sodium Chloride 0.9% 1, 75 000 ml In Empty Bag 1 bag @ 75 mls/hr IV .[id number] [facility] Rx#:[id number] Oral 240 Output: Urine 380 500 Other: Voiding Method Urinal Urinal # Voids 1 2 # Bowel Movements 1 - Labs CBC & Chem 7: 06/24/24 04:23 06/23/24 00:22 Labs: Abnormal Lab Results - Last 24 Hours (Table) 06/23/24 Range/Units 00:22 Triglycerides 866.00 H (0.00-149.00) mg/dL VLDL Cholesterol, Calc 173.20 H (5.00-40.00) mg/dL HDL Cholesterol 22.40 L (40.00-60.00) mg/dL
[2024-06-24 08:08] LABS: African American GFR (CKD) >90 (>60 ml/min/1.73 sqM); Anion Gap 8 mmol/L; Blood Urea Nitrogen 13 mg/dL (9-20); Calcium 9.2 mg/dL (8.4-10.2); Carbon Dioxide 21 mmol/L (22-30); Chloride 107 mmol/L (98-107); Glucose 119 mg/dL (74-99); Non-African American GFR(CKD) >90 (>60 ml/min/1.73 sqM); Potassium 3.8 mmol/L (3.5-5.1); Sodium 136 mmol/L (137-145)
[2024-06-24] MEDS: LOSARTAN 25 MG TAB PO SCH (11:29)
--- NOTE | 2024-06-24 11:59 | P.PN ---
Subjective Progress Note Date: 06/24/24 Subjective: Seen and examined at bedside. No acute events overnight. Denies any chest pain. Pertinent positives and negatives as discussed above, a complete review of systems was performed and all other systems are negative. Vitals Signs Reviewed. General: Nontoxic, no distress, appears at stated age Derm: Warm, dry Head: Atraumatic, normocephalic, symmetric Eyes: EOMI, no lid lag, anicteric sclera Mouth: No lip lesion, mucus membranes moist Cardiovascular: S1S2 reg, no murmur Lungs: CTA bilateral, no rhonchi, no rales, no accessory muscle use Abdominal: Soft, nontender to palpation, no guarding, no appreciable organomegaly Ext: No gross muscle atrophy, trace peripheral edema, no contractures Neuro: CN II-XI grossly intact, no focal neuro deficits Psych: Alert, oriented, appropriate affect Data Reviewed Today: Pertinent Labs: WBC 7.11, hemoglobin 15.2, platelet 179, sodium 136, bicarb 21, creatinine 0.88, magnesium 2 Imaging: Echocardiogram report reviewed, shows LVEF 45 to 50%, apical lateral hypokinesis, apical anterior hypokinesis, moderate right ventricular dilation Assessment and Plan: Active: Acute STEMI status post PCI of diagonal branch Multivessel coronary artery disease Hypertension Former smoker Dyslipidemia Hypertriglyceridemia - Cardiology note reviewed, planning for FFR of the RCA and LAD - Mildly reduced LVEF, no clinical signs of decompensated heart failure - Continue on aspirin 81 mg, atorvastatin 80, Brilinta 90 twice daily - Also on losartan 25 daily, metoprolol 12.5 daily - Consider icosapent ethyl at the time of discharge for hypertriglyceridemia, currently not available on formulary History of COPD - Not in exacerbation - Continue home Symbicort twice daily Resolved: Leukocytosis DVT ppx: Subcu heparin Code status: Full code Anticipated discharge place: Pending clinical course Anticipated discharge time: Pending clinical course Objective - Vital Signs Vital signs: Vital Signs Temp 98.4 F 06/24/24 04:00 Pulse 68 06/24/24 11:00 Resp 15 06/24/24 11:00 BP 118/82 06/24/24 11:00 Pulse Ox 98 06/24/24 04:00 FiO2 Intake & Output 06/23/24 06/24/24 06/24/24 18:59 06:59 18:59 Intake Total 315 Output Total 380 500 275 Balance -65 -500 -275 Weight 113.398 kg 104 kg Intake: IV 75 Sodium Chloride 0.9% 1, 75 000 ml In Empty Bag 1 bag @ 75 mls/hr IV .[id number] [facility] Rx#:[id number] Oral 240 Output: Urine 380 500 275 Other: Voiding Method Urinal Urinal Urinal # Voids 1 2 # Bowel Movements 1 - Labs CBC & Chem 7: 06/24/24 04:23 06/24/24 04:23 Labs: Abnormal Lab Results - Last 24 Hours (Table) 06/24/24 Range/Units 04:23 Sodium 136 L (137-145) mmol/L Carbon Dioxide 21 L (22-30) mmol/L Glucose 119 H (74-99) mg/dL
[2024-06-24] MEDS: MIDAZOLAM 2 MG/2 ML VIAL IVP ONE (17:30)
[2024-06-24] MEDS: LIDOCAINE 1% INJ 10MG/ML (20 ML MDV) SQ ONE (17:30)
[2024-06-24] MEDS: HEPARIN SODIUM 1,000 UN/ML (10ML VL) IVP ONE (17:34)
[2024-06-24] MEDS: VERAPAMIL SYRINGE (5 MG/10 ML) INTRAARTER ONE (17:34)
[2024-06-24] MEDS: SODIUM CHLORIDE 0.9% 500 ML 500 ML IV ONE (17:35)
[2024-06-24] MEDS: fentaNYL (PF) 50 MCG/ML 2 ML AMP IVP ONE (17:35)
[2024-06-24] MEDS: IOPAMIDOL-370 100ML BTL INJ ONE (17:43)
[2024-06-24] MEDS ORDERED: RX INFO: IV CONTRAST WAS GIVEN 1 EACH MISC MISCELLANE PRN (17:47)
--- NOTE | 2024-06-24 17:52 | P.PCN ---
Date of Procedure: 06/24/24 Operative Findings: IFR of the RCA and LAD Performing physician Eleno Gann MD Procedure performed IFR of the RCA and LAD Bilateral coronary angiogram Indication This is a 63-year-old gentleman who was admitted to the hospital recently with a STEMI and was found to have occluded diagonal branch. He underwent PCI of the diagonal branch. He continues to have a chest discomfort and he was found to have also intermediate disease involving the LAD and RCA. Approach Right radial artery Complication None Level of sedation Moderate with sedation length of 15 minutes Procedure description After obtaining informed consent the patient was brought to the cardiac Engine Emission Technician. The right radial artery was cannulated using micropuncture technique the micropuncture wire passed easily then I placed a 6 Burmese 11 cm sheath at the right radial artery and subsequently the patient was given 2 mg of verapamil intra-arterial and 5000's of heparin intravenous. After zeroing the Dobler wire and equalized in between the Dobler wire and guiding catheter which was JR4 guiding catheter the RCA was engaged and subsequently wired. The IFR of the RCA came to be at 0.96. Subsequently I did normalization between the Dobler wire and guiding catheter which was JL 3.5 guiding catheter and then left main was engaged and the LAD was wired with IFR came to be at 0.91. The procedure was completed with no complication Conclusion Intermediate disease involving the RCA documented to be nonflow-limiting by Doppler wire Intermediate disease involving the LAD documented to be nonflow-limiting by Doppler wire Patent stent in the diagonal branch Postprocedure management Aggressive cholesterol control risk factors modification Follow-up
[2024-06-24] MEDS: SODIUM CHLORIDE 0.9% 1,000 ML IV SCH (18:48)
[2024-06-24] MEDS: ZOLPIDEM 5 MG TAB PO PRN (20:08)
[2024-06-25 05:12] VITALS: TEMP 99
[2024-06-25 11:19] VITALS: BP 103/66; PULSE 67; RESP 16
--- NOTE | 2024-06-25 11:29 | P.DS ---
Providers Date of admission: 06/23/24 00:40 Expected date of discharge: 06/25/24 Attending physician: Candelario Sanchez MD Consults: 06/23/24 00:39 Consult Physician Stat Consulting Provider: Mason Mock Consult Reason/Comments: Acute STEMI Do you want consulting provider notified?: Yes 06/23/24 01:56 Consult Physician Routine Consulting Provider: [facility] Consult Reason/Comments: Post Interventional Patient Do you want consulting provider notified?: Already Contacted Primary care physician: Stated None Hospital Course: Hospital course 63-year-old male with COPD and smoking, history of DM and hyperlipidemia corrected with diet and weight loss years ago. Patient coming in for evaluation of chest pain that started suddenly last night when he started feeling pain substernal and left side of his chest felt like heavy achy pain which was radiating to both shoulders and was getting worse despite taking aspirin, pain was associated with profuse sweating and dyspnea. Denies any cardiac history in the past, however he did have an episode of chest pain and syncope 2 weeks ago , but felt fine after he woke up and did not think much about it. he has been going through a divorce for the past 2 years, and was very stressful, stopped exercising and gained all the weight back. EKG in the ED showed ST segment elevation in the inferior leads. Box Sealing Machine Catcher was activated for STEMI, patient was taken emergently to the Box Sealing Machine Catcher with the following findings, 100% thrombotic occlusion of diagonal 2, TAMMY 0 flow, 60 to 70% mid LAD disease, 50% diagonal 1 disease, small caliber vessel, 50% distal LCx disease, 30% mid RCA disease, Mild diffuse disease in PDA, Mildly elevated LVEDP, Successful stenting of the second diagonal branch of the using 4.0 x 15 mm Xience drug-eluting stent with an excellent angiographic results. Chest x-ray on 06/23/2024 showed slightly prominent vascular and interstitial markings throughout the lungs without overt edema or acute focal infiltrate. Echocardiogram on 06/13/2024 showed normal left ventricle size with hypokinesia involving the apical lateral and distal anteroapical wall with ejection fraction in the 45 to 50% range. Aortic valve sclerosis. Mild mitral and tricuspid regurgitation. Technically difficult study with no clear-cut pericardial effusion and no pulmonary hypertension. Right ventricle is enlarged. Patient underwent an IFR of the RCA and LAD and bilateral coronary angiogram on 06/24/2024 which showed intermediate disease involving the RCA and LAD documented to be nonflow limiting by Doppler wire, patent stent in the diagonal branch. Patient is medically stable to be discharged on 06/25/2024. Aspirin 81 mg, Plavix 75 daily, Lipitor 80 mg at bedtime, losartan 25 mg daily and metoprolol succinate 12.5 mg daily have been added to home medication. Patient is recommended to follow-up with PCP and mud engineer in 1 to 2 weeks after discharge. Physical exam GENERAL: This is a 63-year-old in no apparent distress at the time of examination. Pleasant and cooperative. HEENT: Head is atraumatic, normocephalic. Pupils are equal, round, and reactive to light. Sclerae anicteric. Conjunctivae are clear. Mucus membranes of the mouth are moist. Neck is supple. RESPIRATORY: Clear to auscultation. No wheezes, rales, or rhonchi. No use of accessory muscles. Patient maintaining oxygen saturation greater than 92%. No chest wall tenderness is noted on palpation or with deep breathing. CARDIOVASCULAR: Regular rate and rhythm. S1 and S2 noted. No systolic or diastolic murmur auscultated. No JVD noted. No S3 or S4 noted. GASTROINTESTINAL: No distention noted. Abdomen soft and round. No pain or tenderness noted upon palpation. INTEGUMENTARY: No cyanosis. No jaundice. No rashes noted. No cellulitis noted. EXTREMITIES: 2+ peripheral pulses. No evidence of peripheral edema. No calf tenderness noted. NEUROLOGIC: Cranial nerves II-XII intact. PSYCHIATRIC: Awake, alert, and oriented X 3. Appropriate affect. Intact judgement and insight. DISCHARGE DIAGNOSIS: Acute STEMI status post PCI of diagonal branch Multivessel coronary artery disease Hypertension Former smoker Dyslipidemia Hypertriglyceridemia History of COPD A total of 32 minutes of time were spent preparing this complex discharge summary. Patient was discharged on 06/25/2024 at 1116. I have seen and evaluated the patient today. Discussed with the resident and agree with the residents finding and plan as documented in the resident's note. Changes highlighted in blue font. Plan - Discharge Summary Discharge Rx Participant: Yes New Discharge Prescriptions: New Aspirin 81 mg PO DAILY #90 tab Atorvastatin [Lipitor] 80 mg PO HS #90 tab Clopidogrel [Plavix] 75 mg PO DAILY #90 tablet Losartan [Cozaar] 25 mg PO DAILY #90 tab Metoprolol Succinate (ER) [Toprol XL] 12.5 mg PO DAILY #90 tab Continue Fluticasone Propion/Salmeterol [Advair 250-50 Diskus] 1 puff INHALATION RT- BID Albuterol Sulfate [Albuterol Sulfate Hfa] 2 puff PO RT-Q6H PRN PRN Reason: Shortness Of Breath Discharge Medication List Albuterol Sulfate [Albuterol Sulfate Hfa] 2 puff PO RT-Q6H PRN 06/23/24 [History] Fluticasone Propion/Salmeterol [Advair 250-50 Diskus] 1 puff INHALATION RT-BID 06/23/24 [History] Aspirin 81 mg PO DAILY #90 tab 06/25/24 [Rx] Atorvastatin [Lipitor] 80 mg PO HS #90 tab 06/25/24 [Rx] Clopidogrel [Plavix] 75 mg PO DAILY #90 tablet 06/25/24 [Rx] Losartan [Cozaar] 25 mg PO DAILY #90 tab 06/25/24 [Rx] Metoprolol Succinate (ER) [Toprol XL] 12.5 mg PO DAILY #90 tab 06/25/24 [Rx] Follow up Appointment(s)/Referral(s): Eleno Gann MD [STAFF PHYSICIAN] - 1 Week (Office to call with appointment date and time.) [facility] [NON-STAFF] - 1 Week None,Stated [Primary Care Provider] - 1-2 days Patient Instructions/Handouts: *[facility] - After Heart Catheterization - Die Casting Machine Setter Instructions, Heart Attack (DC) Activity/Diet/Wound Care/Special Instructions: Please see PCP and cardiology. Discharge Disposition: HOME SELF-CARE
--- NOTE | 2024-06-25 11:59 | P.PN ---
Subjective HISTORY OF PRESENT ILLNESS: The patient is a 63-year-old gentleman with a past medical history significant for hypertension and dyslipidemia and overweight who was admitted to the hospital yesterday with a chest discomfort and was a diagnosed with ST elevation myocardial infarction. He underwent a heart catheterization was found to have intermediate disease involving the RCA and mid LAD by the bifurcation of a large diagonal branch which was occluded with a large thrombus burden. He underwent PCI of the diagonal branch. June 23, 2024 The patient was seen and evaluated this morning. He is asymptomatic and he is hemodynamically stable. The echo still pending. He is on dual antiplatelet therapy along with high intensity statin. The physical examination is remarkable for regular rhythm with a soft systolic murmur and clear breathing sounds bilaterally and no edema was noted in the lower extremities June 24, 2024 The patient was seen and evaluated this morning. He continues to have mild chest discomfort but no shortness of breath or any other cardiovascular symptoms. The echo showed cardiomyopathy with EF between 45 to 50% with wall motion abnormalities in the LAD/diagonal distribution. The plan is to pursue an FFR of the RCA and LAD later on today. Otherwise he is on dual antiplatelet therapy along with high intensity statin and beta-oziel. I am going to add losartan to the current medical regimen. The physical examination is remarkable for regular rhythm with a soft systolic murmur and clear breathing sounds bilaterally and no edema was noted in the lower extremities 06/25/2024 This is a 63-year-old male who initially underwent cardiac catheterization on 06/23/2024 with stenting of the second diagonal branch. Patient underwent repeat catheterization yesterday with IFR which was found to be nonflow limiting by Doppler wire of the RCA and LAD. Patient with patent stent in the diagonal branch. Patient currently denies any chest pain or pressure. He denies shortness of breath. Vital signs are stable. PHYSICAL EXAM: VITAL SIGNS: Reviewed. GENERAL: Well-developed in no acute distress. NECK: Supple. No JVD or thyromegaly LUNGS: Respirations even and unlabored. Lungs essentially clear to auscultation bilaterally. HEART: Regular rate and rhythm. S1 and S2 heard. EXTREMITIES: Normal range of motion. No clubbing or cyanosis. Peripheral pulses intact. No lower extremity edema ASSESSMENT: STEMI Status post cardiac catheterization with stenting of second diagonal branch, 06/23/2024 Intermediate disease of RCA and LAD, nonflow limiting by Doppler wire COPD Former nicotine dependence Obesity: BMI 33.7 PLAN: Continue dual antiplatelet therapy with aspirin and Brilinta for 12 months. Not ified by case management that patient does not have any insurance. Patient will be given 1 month of Brilinta free from this facility and then can be transition to Plavix after 1 month in the office by his primary informatics spec. Continue high intensity statin. LDL goal less than 70. Continue additional cardiac medications including losartan and metoprolol Patient is stable for discharge home today from a cardiac standpoint. Patient to follow-up postdischarge with Dr. Mock Nurse practitioner note has been reviewed by physician. Signing provider agrees with the documented findings, assessment, and plan of care documented by BONE DRIER OPERATOR as a scribe. Objective - Vital Signs Vital signs: Vital Signs Temp 99 F 06/25/24 05:11 Pulse 95 06/25/24 05:11 Resp 18 06/25/24 05:11 BP 118/77 06/25/24 05:11 Pulse Ox 95 06/25/24 05:11 FiO2 Intake & Output 06/24/24 06/25/24 06/25/24 18:59 06:59 18:59 Intake Total 200 200 Output Total 750 Balance -550 200 Weight 100.5 kg Intake: IV 200 Oral 200 Output: Urine 750 Other: Voiding Method Urinal Urinal # Voids 1 2 # Bowel Movements 1 - Labs CBC & Chem 7: 06/24/24 04:23 06/24/24 04:23
== END 2024-06-25 14:30 | disposition home or self-care (01) | DRG 322 ==
LOC: EC 00:04 → 2SICU 00:40 → 3SCARD 06-24 22:48
PROVIDERS: ADMIT Internal Medicine; ATTEND Internal Medicine
PROC: B240ZZ3 Ultrasonography of Single Coronary Artery, Intravascular (ICD-10-PCS; principal; 2024-06-23 00:50)
PROC: 027034Z Dilation of Coronary Artery, One Artery with Drug-eluting Intraluminal Device, Percutaneous Approach (ICD-10-PCS; principal; 2024-06-23 00:50)
PROC: B2111ZZ Fluoroscopy of Multiple Coronary Arteries using Low Osmolar Contrast (ICD-10-PCS; 2024-06-24 10:15)
PROC: 4A033BC Measurement of Arterial Pressure, Coronary, Percutaneous Approach (ICD-10-PCS; 2024-06-24 10:15)
PROC: 4A023N7 Measurement of Cardiac Sampling and Pressure, Left Heart, Percutaneous Approach (ICD-10-PCS; 2024-06-24 10:15)
DX: I21.19 ST elevation (STEMI) myocardial infarction involving other coronary artery of inferior wall (principal); I42.9 Cardiomyopathy, unspecified; E11.9 Type 2 diabetes mellitus without complications; D72.829 Elevated white blood cell count, unspecified; E66.9 Obesity, unspecified; J44.9 Chronic obstructive pulmonary disease, unspecified; I10 Essential (primary) hypertension; I35.0 Nonrheumatic aortic (valve) stenosis; E78.1 Pure hyperglyceridemia; I25.10 Atherosclerotic heart disease of native coronary artery without angina pectoris; I08.3 Combined rheumatic disorders of mitral, aortic and tricuspid valves; Z68.33 Body mass index [BMI] 33.0-33.9, adult; Z79.02 Long term (current) use of antithrombotics/antiplatelets; Z79.82 Long term (current) use of aspirin; Z79.899 Other long term (current) drug therapy; Z87.891 Personal history of nicotine dependence; Z88.1 Allergy status to other antibiotic agents; Z88.5 Allergy status to narcotic agent; Z63.5 Disruption of family by separation and divorce
CPT/HCPCS: 36415; 71045; 80048; 80053; 80061; 83036; 83721; 83735; 83880; 84443; 84484; 85025; 85610; 85730; 92978; 93005; 93306; 93454; 93458; 93799; 94640; 96374; 96375; 99291